=== PATIENT | female | born 1990 | race Caucasian/White ===

== ENCOUNTER 2018-04-18 21:17 | Emergency (ER) | END 2018-04-19 01:14 | disposition left against medical advice (07) ==

== ENCOUNTER 2019-04-04 19:02 | Emergency (ER) | payer OTHER ==
[~2019-04-04] VITALS: Ht 157.5 cm; Wt 80.9 kg
[~2019-04-04 19:02] MED LIST: OXYC-279 PO; [UNRECOGNIZED DRUG - OTHER]
[2019-04-04 19:15] VITALS: BP 115/80; PULSE 69; RESP 18; Ht 157.5 cm; Wt 80.9 kg
[2019-04-04] MEDS ORDERED: KETOROLAC 30 MG INJ IM STA (19:41)
[2019-04-04] MEDS ORDERED: OXYCODONE/ACETAMINOPHEN (5/325) TAB PO ONE (20:00)
== END 2019-04-04 20:02 | disposition home or self-care (01) ==
LOC: E/R 19:02
DX: S33.5XXA Sprain of ligaments of lumbar spine, initial encounter (principal); M54.16 Radiculopathy, lumbar region; V89.2XXA Person injured in unspecified motor-vehicle accident, traffic, initial encounter; Z87.891 Personal history of nicotine dependence
CPT/HCPCS: 96372; J1885; Z7502; Z7610